=== PATIENT | male | born 1990 | race Hispanic/Latino ===

== ENCOUNTER 2023-01-22 13:02 | Emergency (ER) | payer SELFPAY ==
[~2023-01-22] VITALS: Ht 167.6 cm; Wt 81.6 kg
[2023-01-22 13:20] VITALS: O2SAT 99
[2023-01-22] MEDS ORDERED: PREDNISONE50 MG PO (13:59)
[2023-01-22] MEDS ORDERED: ACYCLOVIR800 MG PO (13:59)
[2023-01-22] MEDS ORDERED: ANAPROX DS550 MG PO (13:59)
== END 2023-01-22 14:10 | disposition home or self-care (01) ==
LOC: ER 13:07
DX: G50.0 Trigeminal neuralgia (principal); H92.02 Otalgia, left ear; F17.210 Nicotine dependence, cigarettes, uncomplicated
CPT/HCPCS: 99283